=== PATIENT | male | born 1990 | race Caucasian/White ===

== ENCOUNTER 2017-12-20 20:18 | Emergency (ER) | payer MEDICAID ==
[~2017-12-20] VITALS: Ht 193 cm; Wt 133.8 kg
[~2017-12-20 20:18] MED LIST: AMOX-423 PO; CEFT1VIA IJ
[2017-12-20 20:20] VITALS: BP_SYST 130
[2017-12-20 21:31] VITALS: BP_SYST 130
== END 2017-12-20 21:31 | disposition home or self-care (01) ==
LOC: SED 20:18
DX: R13.10 Dysphagia, unspecified (principal); J45.909 Unspecified asthma, uncomplicated
CPT/HCPCS: 99283